=== PATIENT | female | born 1955 | race Two or more races ===

== ENCOUNTER 2023-03-13 11:16 | Inpatient (IN) | payer OTHER, MEDICAID ==
[~2023-03-13] VITALS: Ht 182.9 cm; Wt 146.9 kg
[2023-03-13 13:22] LABS: Basophils # (auto) 0.1 10 ^3/uL (0-0.2); Basophils % (auto) 0.6 % (0.0-2.0); Eosinophils # (auto) 0.1 10 ^3/uL (0-0.8); Eosinophils % (auto) 1.3 % (0.0-7.0); Hematocrit 43.5 % (36.0-46.0); Hemoglobin 14.2 g/dL (12.2-16.2); Lymphocytes # (auto) 1.6 10 ^3/uL (0.4-5.4); Lymphocytes % (auto) 14.4 % (10.0-50.0); Mean Corpuscular Hemoglobin 28.2 pg (28.0-32.0); Mean Corpuscular Hgb Conc. 32.6 g/dL (32.0-36.0); Mean Corpuscular Volume 86.4 fL (80.0-100.0); Monocytes # (auto) 0.5 10 ^3/uL (0-1.3); Monocytes % (auto) 4.5 % (0.0-12.0); Neutrophils # (auto) 8.9 10 ^3/uL (1.6-8.6); Neutrophils % (auto) 79.2 % (37.0-80.0); Red Blood Cells 5.04 10^6/uL (4.0-5.20); Red Cell Distribution Width 13.3 % (11.8-14.3); White Blood Cell 11.2 10^3/uL (4.4-10.8)
[2023-03-13 13:54] LABS: Alanine Aminotransferase 15 U/L (7-40); Albumin 4.2 g/dL (3.2-4.8); Alkaline Phosphatase 103 U/L (46-116); Anion Gap 8 (5-15); Aspartate Aminotransferase 12 U/L (13-40); BUN/Creatinine Ratio 24.4 (10.0-20.0); Bilirubin, Total 0.5 mg/dL (0.2-1.0); Blood Urea Nitrogen 20 mg/dL (9-23); Calcium 9.5 mg/dL (8.5-10.1); Carbon Dioxide 24 mmol/L (20-30); Chloride 107 mmol/L (98-107); Glucose 293 mg/dL (74-106); Potassium 4.2 mmol/L (3.5-5.1); Sodium 139 mmol/L (136-145)
[2023-03-13 13:55] LABS: Total Protein 6.8 g/dL (5.7-8.2)
[2023-03-13 14:03] LABS: CRP High Sensitivity 1.05 mg/dL (<1.0)
[2023-03-13] MEDS ORDERED: CLINDAMYCIN 300MG IV 50 ML IV ONE (19:45)
[2023-03-13] MEDS ORDERED: MORPHINE SULFATE INJ 2 MG/ml SYRG IV PRN (21:15)
[2023-03-13] MEDS ORDERED: ONDANSETRON HCL 4 MG/2 ML VIAL IV PRN (21:15)
[2023-03-13] MEDS ORDERED: NITROGLYCERIN 0.4 MG SL TAB SL PRN (21:15)
[2023-03-13] MEDS ORDERED: DEXTROSE (50%) 50ML SYRG IV PRN (21:15)
[2023-03-13] MEDS ORDERED: ATORVASTATIN 20 MG TAB PO SCH (22:00)
[2023-03-13] MEDS: ACCU-CHEK COMFORT CURVE STRIP VI SCH (22:27)
[2023-03-13] MEDS: InsuLIN REG 1unit/0.01ml Soln (100units/ml) SC SCH (22:28)
[2023-03-14 02:49] VITALS: PULSE 89; RESP 15; O2SAT 96
[2023-03-14 05:38] LABS: Alanine Aminotransferase 13 U/L (7-40); Albumin 4.3 g/dL (3.2-4.8); Alkaline Phosphatase 109 U/L (46-116); Anion Gap 10 (5-15); Aspartate Aminotransferase 11 U/L (13-40); BUN/Creatinine Ratio 17.6 (10.0-20.0); Bilirubin, Total 0.9 mg/dL (0.2-1.0); Blood Urea Nitrogen 13 mg/dL (9-23); Calcium 9.4 mg/dL (8.7-10.4); Carbon Dioxide 24 mmol/L (20-30); Chloride 105 mmol/L (98-107); Potassium 3.6 mmol/L (3.5-5.1); Sodium 139 mmol/L (136-145); Total Protein 7.2 g/dL (5.7-8.2)
[2023-03-14 05:49] LABS: Basophils # (auto) 0 10 ^3/uL (0-0.2); Basophils % (auto) 0.3 % (0.0-2.0); Eosinophils # (auto) 0.2 10 ^3/uL (0-0.8); Eosinophils % (auto) 1.4 % (0.0-7.0); Hematocrit 42.1 % (36.0-46.0); Hemoglobin 13.9 g/dL (12.2-16.2); Lymphocytes # (auto) 1.8 10 ^3/uL (0.4-5.4); Lymphocytes % (auto) 15.8 % (10.0-50.0); Mean Corpuscular Hemoglobin 28.4 pg (28.0-32.0); Mean Corpuscular Volume 85.8 fL (80.0-100.0); Monocytes # (auto) 0.6 10 ^3/uL (0-1.3); Monocytes % (auto) 5.5 % (0.0-12.0); Nucleated Red Blood Cells % 0.1 %; Red Cell Distribution Width 13.5 % (11.8-14.3); White Blood Cell 11.6 10^3/uL (4.4-10.8)
[2023-03-14 05:58] LABS: Glucose 188 mg/dL (74-106)
[2023-03-14] MEDS: ACCU-CHEK COMFORT CURVE STRIP VI SCH ×4 (06:35→22:14)
[2023-03-14] MEDS: InsuLIN REG 1unit/0.01ml Soln (100units/ml) SC SCH ×4 (06:47→22:15)
[2023-03-14 09:00] VITALS: BP 117/73; PULSE 87; RESP 19; TEMP 98.7; O2SAT 95
[2023-03-14] MEDS ORDERED: NITR0.4S29 SL (09:33)
[2023-03-14] MEDS ORDERED: METF-370 PO (09:33)
[2023-03-14] MEDS ORDERED: ASPI-325 PO (09:33)
[2023-03-14] MEDS ORDERED: DULA1INJ SC (09:33)
[2023-03-14] MEDS ORDERED: METO25TA36 PO (09:40)
[2023-03-14] MEDS ORDERED: ATOR20TA50 PO (09:40)
[2023-03-14] MEDS ORDERED: GABA-1250 PO (09:40)
[2023-03-14] MEDS ORDERED: OMEP20TA PO (09:40)
[2023-03-14] MEDS ORDERED: RIVA20TA PO (09:40)
[2023-03-14] MEDS ORDERED: AML5T PO (09:40)
[2023-03-14 09:41] VITALS: PULSE 93; RESP 20; O2SAT 93
[2023-03-14 10:37] LABS: Urine Bacteria NONE SEEN /hpf (None Seen); Urine Blood Negative /uL (Negative); Urine Clarity HAZY (Clear); Urine Color Yellow (Yellow); Urine Mucus FEW (None Seen); Urine Protein, UAD TRACE (Negative); Urine Specific Gravity 1.032 (1.001-1.035); Urine Urobilinogen Normal (Negative); Urine WBC 2 /hpf (0 - 5); Urine pH 5.5 (5.0-8.0)
[2023-03-14] MEDS: METOPROLOL SUCCINATE XL 50 MG TAB PO SCH (10:39)
[2023-03-14] MEDS: ASPirin 81 mg TAB PO SCH (10:39)
[2023-03-14 10:40] LABS: Triglycerides 98 mg/dL (< 150)
[2023-03-14] MEDS: amLODIPine BESYLATE 5 MG TAB PO SCH (10:40)
[2023-03-14] MEDS: MECLIZINE HCL 25 MG TAB PO SCH ×2 (10:40→22:05)
[2023-03-14 10:41] LABS: LDL Cholesterol 78 mg/dL (< 100)
[2023-03-14] MEDS: GABAPENTIN 300 MG CAP PO SCH (10:41)
[2023-03-14] MEDS: cefTRIAXone 1GM/50ML D5W 50 ML IV SCH (10:41)
[2023-03-14 10:42] LABS: Cholesterol 124 mg/dL (< 200); HDL Cholesterol 35 mg/dL (40-59)
[2023-03-14 13:00] VITALS: BP 127/66; PULSE 80; RESP 14; TEMP 98.7; O2SAT 97
[2023-03-14 17:00] VITALS: BP 147/69; PULSE 89; RESP 17; TEMP 98.8; O2SAT 92
[2023-03-14] MEDS: RIVAROXABAN 20 MG TAB PO SCH (17:34)
[2023-03-14 22:00] VITALS: BP 130/62; PULSE 83; RESP 20; TEMP 99.1; O2SAT 93
[2023-03-14] MEDS: ATORVASTATIN 20 MG TAB PO SCH (22:05)
[2023-03-15 05:00] VITALS: BP 132/54; PULSE 81; RESP 19; TEMP 98.3; O2SAT 92
[2023-03-15 06:18] LABS: Basophils # (auto) 0 10 ^3/uL (0-0.2); Basophils % (auto) 0.3 % (0.0-2.0); Eosinophils # (auto) 0.2 10 ^3/uL (0-0.8); Eosinophils % (auto) 2.6 % (0.0-7.0); Hematocrit 42.7 % (36.0-46.0); Hemoglobin 14.1 g/dL (12.2-16.2); Lymphocytes # (auto) 1.9 10 ^3/uL (0.4-5.4); Lymphocytes % (auto) 24.7 % (10.0-50.0); Mean Corpuscular Hemoglobin 28.3 pg (28.0-32.0); Mean Corpuscular Hgb Conc. 33.1 g/dL (32.0-36.0); Mean Corpuscular Volume 85.4 fL (80.0-100.0); Monocytes # (auto) 0.5 10 ^3/uL (0-1.3); Monocytes % (auto) 6.6 % (0.0-12.0); Neutrophils # (auto) 5.1 10 ^3/uL (1.6-8.6); Neutrophils % (auto) 65.8 % (37.0-80.0); Nucleated Red Blood Cells % 0.1 %; Red Blood Cells 4.99 10^6/uL (4.0-5.20); Red Cell Distribution Width 13.3 % (11.8-14.3); White Blood Cell 7.8 10^3/uL (4.4-10.8)
[2023-03-15] MEDS: ACCU-CHEK COMFORT CURVE STRIP VI SCH ×5 (06:26→21:41)
[2023-03-15] MEDS: InsuLIN REG 1unit/0.01ml Soln (100units/ml) SC SCH ×4 (06:27→21:42)
[2023-03-15 06:28] LABS: Alanine Aminotransferase 14 U/L (7-40); Albumin 3.8 g/dL (3.2-4.8); Alkaline Phosphatase 100 U/L (46-116); Anion Gap 6 (5-15); Aspartate Aminotransferase 12 U/L (13-40); BUN/Creatinine Ratio 15.4 (10.0-20.0); Bilirubin, Total 0.8 mg/dL (0.2-1.0); Blood Urea Nitrogen 12 mg/dL (9-23); Calcium 9.4 mg/dL (8.5-10.1); Carbon Dioxide 28 mmol/L (20-30); Chloride 106 mmol/L (98-107); Glucose 153 mg/dL (74-106); Sodium 140 mmol/L (136-145); Total Protein 6.6 g/dL (5.7-8.2)
[2023-03-15 08:00] VITALS: BP 135/77; PULSE 74; RESP 20; TEMP 97.8; O2SAT 97
[2023-03-15 09:00] VITALS: BP 135/77; PULSE 74; RESP 20; TEMP 97.8; O2SAT 97
[2023-03-15] MEDS: cefTRIAXone 1GM/50ML D5W 50 ML IV SCH (09:07)
[2023-03-15] MEDS: GABAPENTIN 300 MG CAP PO SCH (09:08)
[2023-03-15] MEDS: ASPirin 81 mg TAB PO SCH (09:08)
[2023-03-15] MEDS: MECLIZINE HCL 25 MG TAB PO SCH ×2 (09:10→21:26)
[2023-03-15] MEDS: METOPROLOL SUCCINATE XL 50 MG TAB PO SCH (09:10)
[2023-03-15] MEDS: amLODIPine BESYLATE 5 MG TAB PO SCH (09:10)
[2023-03-15 13:00] VITALS: BP 133/58; PULSE 78; RESP 20; TEMP 98.4; O2SAT 93
[2023-03-15 13:49] LABS: Folate (Folic Acid) 23.87 ng/mL (>5.38)
[2023-03-15 17:02] VITALS: BP 118/52; PULSE 78; RESP 18; TEMP 98.4; O2SAT 99
[2023-03-15] MEDS: RIVAROXABAN 20 MG TAB PO SCH (17:02)
[2023-03-15] MEDS ORDERED: ACETAMINOPHEN 325 MG TAB PO PRN (17:30)
[2023-03-15] MEDS: ATORVASTATIN 20 MG TAB PO SCH (21:26)
[2023-03-15 22:00] VITALS: BP 122/74; PULSE 80; RESP 18; TEMP 98.4; O2SAT 96
[2023-03-16] MEDS ORDERED: MELATONIN 5 MG TAB PO ONE (00:30)
[2023-03-16 05:00] VITALS: BP 108/56; PULSE 69; RESP 20; TEMP 98.4; O2SAT 96
[2023-03-16 06:18] LABS: Basophils # (auto) 0 10 ^3/uL (0-0.2); Basophils % (auto) 0.4 % (0.0-2.0); Eosinophils # (auto) 0.2 10 ^3/uL (0-0.8); Eosinophils % (auto) 2.4 % (0.0-7.0); Hematocrit 42.2 % (36.0-46.0); Hemoglobin 14.1 g/dL (12.2-16.2); Lymphocytes # (auto) 1.7 10 ^3/uL (0.4-5.4); Lymphocytes % (auto) 19.8 % (10.0-50.0); Mean Corpuscular Hemoglobin 28.3 pg (28.0-32.0); Mean Corpuscular Hgb Conc. 33.3 g/dL (32.0-36.0); Mean Corpuscular Volume 85.1 fL (80.0-100.0); Monocytes # (auto) 0.6 10 ^3/uL (0-1.3); Monocytes % (auto) 6.7 % (0.0-12.0); Neutrophils # (auto) 6.1 10 ^3/uL (1.6-8.6); Neutrophils % (auto) 70.7 % (37.0-80.0); Nucleated Red Blood Cells % 0.1 %; Red Blood Cells 4.96 10^6/uL (4.0-5.20); Red Cell Distribution Width 12.9 % (11.8-14.3); White Blood Cell 8.6 10^3/uL (4.4-10.8)
[2023-03-16] MEDS: ACCU-CHEK COMFORT CURVE STRIP VI SCH ×2 (06:29→17:00)
[2023-03-16] MEDS: InsuLIN REG 1unit/0.01ml Soln (100units/ml) SC SCH ×3 (06:32→17:00)
[2023-03-16 06:52] LABS: Anion Gap 7 (5-15); Carbon Dioxide 26 mmol/L (20-30); Chloride 105 mmol/L (98-107); Potassium 3.9 mmol/L (3.5-5.1); Sodium 138 mmol/L (136-145)
[2023-03-16 06:53] LABS: Calcium 9.4 mg/dL (8.5-10.1)
[2023-03-16 06:57] LABS: Glucose 173 mg/dL (74-106)
[2023-03-16 06:58] LABS: BUN/Creatinine Ratio 16.7 (10.0-20.0); Blood Urea Nitrogen 14 mg/dL (9-23)
[2023-03-16] MEDS ORDERED: MECL1TAB32 PO (07:21)
[2023-03-16 08:00] VITALS: BP 135/77; PULSE 74; RESP 20; TEMP 97.8; O2SAT 97
[2023-03-16 08:30] VITALS: BP 133/86; PULSE 82; RESP 19; TEMP 98.1; O2SAT 96
[2023-03-16] MEDS: MECLIZINE HCL 25 MG TAB PO SCH (09:35)
[2023-03-16] MEDS: GABAPENTIN 300 MG CAP PO SCH (09:35)
[2023-03-16] MEDS: ASPirin 81 mg TAB PO SCH (09:35)
[2023-03-16] MEDS: METOPROLOL SUCCINATE XL 50 MG TAB PO SCH (09:36)
[2023-03-16] MEDS: cefTRIAXone 1GM/50ML D5W 50 ML IV SCH (09:37)
[2023-03-16] MEDS: amLODIPine BESYLATE 5 MG TAB PO SCH (09:37)
[2023-03-16 12:30] VITALS: BP 122/79; PULSE 76; RESP 19; TEMP 98.1; O2SAT 96
[2023-03-16 15:51] VITALS: BP 149/53; PULSE 53
[2023-03-19 19:06] LABS: Vitamin B1, Whole Blood 130.2 nmol/L (66.5-200.0)
== END 2023-03-16 17:52 | disposition home or self-care (01) | DRG 149 ==
LOC: ER 11:16 → TELE 21:18 → TELE-WESTW 03-14 09:13 → WEST WING 03-14 23:41
PROVIDERS: ADMIT Internal Medicine; ATTEND Internal Medicine
DX: H81.10 Benign paroxysmal vertigo, unspecified ear (principal); N39.0 Urinary tract infection, site not specified; Z68.42 Body mass index [BMI] 45.0-49.9, adult; E11.40 Type 2 diabetes mellitus with diabetic neuropathy, unspecified; I10 Essential (primary) hypertension; E66.01 Morbid (severe) obesity due to excess calories; E11.51 Type 2 diabetes mellitus with diabetic peripheral angiopathy without gangrene; E78.5 Hyperlipidemia, unspecified; Z79.82 Long term (current) use of aspirin; Z80.3 Family history of malignant neoplasm of breast; Z85.42 Personal history of malignant neoplasm of other parts of uterus; Z85.44 Personal history of malignant neoplasm of other female genital organs; Z86.718 Personal history of other venous thrombosis and embolism; Z86.73 Personal history of transient ischemic attack (TIA), and cerebral infarction without residual deficits; Z87.440 Personal history of urinary (tract) infections; Z87.891 Personal history of nicotine dependence; Z90.49 Acquired absence of other specified parts of digestive tract; Z79.899 Other long term (current) drug therapy
CPT/HCPCS: 36415; 70450; 70551; 71045; 74176; 80048; 80053; 80061; 81001; 82607; 82746; 82962; 83036; 83605; 83690; 83880; 84425; 84443; 84484; 85025; 86141; 87086; 93306; 93886; 93971; 97110; 97116; 97163; 97530; G0378; J0696; J1815; J3490